=== PATIENT | female | born 1990 | race Caucasian/White ===

== ENCOUNTER 2017-10-26 11:21 | Emergency (ER) | payer OTHER ==
--- NOTE | 2017-10-26 12:12 | PD ---
HPI Chief Complaint Contractions Date Seen: October 26, 2017 Time Seen: 12:05 Travel History International Travel<30 Days: No Contact w/Intl Traveler<30Days: No Known Affected Area: No History of Present Illness HPI Patient is 27-year-old white female 38-[address] Barton for care, presents complaining of contractions that are painful, no bleeding, no leakage, contractions are seen on the monitor somewhat irregular NST reactive Weeks Gestation: 38 Para: 0 : 1 History Social History Alcohol Use: No Tobacco Use: No Substance Abuse: No Allergies-Medications (Allergen,Severity, Reaction): Coded Allergies: Sulfa (Sulfonamide Antibiotics) (Verified Allergy, Unknown, 10/26/17) Review of Systems General / Constitutional: No: Fever, Weight Gain, Chills, Other Eyes: No: Diploplia, Blurred Vision, Visual changes, Pain, Photophobia HENT: No: Headaches, Vertigo, Lightheadedness Cardiovascular: No: Irregular Rhythm, Chest Pain or Discomfort, Palpitations, Tachycardia, Syncope, Varicosities, Edema, Cyanosis Respiratory: No: Cough, Short of Breath, Other Gastrointestinal: Abdominal Pain, No: Nausea, Vomiting, Diarrhea Genitourinary: No: Decreased Urinary Output, Oliguria Musculoskeletal: No: Limited ROM, Weakness, Cramping, Edema, Pain Skin: No Rash, No Itching, No Dryness, No Lumps, No Change in Pigmentation, No Change in Nails, No Alopecia, No Lesions Neurologic: No: Weakness, Dizziness, Syncope, Focal Abnormalities, Coordination Problem, Headache, Slurred Speech, Seizures Psychiatric: No: Depression, Suicidal Ideations, Homicidal Ideation Endocrine: No: Heat Intolerance, Cold Intolerance, Polydipsia, Polyuria, Other Physical Exam Narrative GENERAL: Well-nourished, well-developed patient. SKIN: Warm and dry. HEAD: Normocephalic and atraumatic. EYES: No scleral icterus. No injection or drainage. ENT: No nasal drainage noted. Mucous membranes pink. Airway patent. NECK: Supple, trachea midline. No JVD. CARDIOVASCULAR: Regular rate and rhythm without murmurs, gallops, or rubs. RESPIRATORY: Breath sounds equal bilaterally. No accessory muscle use. BREASTS: Bilateral exam showed no masses , no retractions, no nipple discharge. ABDOMEN/GI: Abdomen soft, non-tender, bowel sounds present, no rebound, no guarding Gravid to [-38] weeks size Fundal Height: [38-] GENITOURINARY: External Genitalia: intact and normal in appearance BUS glands: [-] Cervix: [post-] Dilatation: [1-] Effacement: [60-] Station: [-2] Presentation: [vtx-] Membranes: [intact ] Uterine Contractions: [-irreg] FHT's: Category: [1-] Baseline: [-133] Reactive: [Reactive-] Variability: [mod-] Decels: [-] EXTREMITIES: No cyanosis or edema. BACK: Nontender without obvious deformity. No CVA tenderness. NEUROLOGICAL: Awake and alert. Motor and sensory grossly within normal limits. Five out of 5 muscle strength in all muscle groups. Normal speech. MDM Interpretation(s) Patient is 27-year-old white female at 38-39 weeks presents complaining of regular contractions, on the monitor contractions are somewhat irregular. She says the pain contractions are painful, disease had no bleeding or leakage of fluid. Baby is active. Cervix is 1/60/-2/vertex, NST reactive Plan Plan to discharge patient home to observe for increasing contraction activity and strength, she knows to return for any significant bleeding or leakage of fluid. Patient requests and will receive pain shot Demerol 50/Phenergan 25 otherwise she will follow-up with her OB provider Diagnosis Diagnosis: Primary Impression: Willi Lopez contractions Additional Impression: 38 weeks gestation of Disposition: DISCHARGE HOME Condition: Stable Devon Gallo II, MD October 26, 2017 12:12
[2017-10-26] MEDS ORDERED: MEPERIDINE HCL 50 MG/ML VIAL IM ONE (12:45)
[2017-10-26] MEDS ORDERED: PROMETHAZINE INJ 25 MG/ML VIAL IM ONE (12:45)
[2017-10-26] MEDS ORDERED: PRENTAB7 PO (21:30)
== END 2017-10-26 13:30 | disposition home or self-care (01) ==
LOC: HOBED 11:21
DX: O47.1 False labor at or after 37 completed weeks of gestation (principal); Z3A.38 38 weeks gestation of pregnancy; Z88.2 Allergy status to sulfonamides
CPT/HCPCS: 59025; 96372; 99283; J2175; J2550

== ENCOUNTER 2017-10-26 20:20 | Inpatient (IN) | payer OTHER ==
[~2017-10-26] VITALS: Ht 152.4 cm; Wt 61.0 kg
[2017-10-26] VITALS (9 sets, daily range): BP systolic 97–118; BP diastolic 56–74; PULSE 98–113; RESP 18–20
[~2017-10-26 20:20] MED LIST: LIDOCAINE 2%/EPINEPHrine PF 1:200,000 20ML SDV OTHER ONE
[2017-10-26] MEDS ORDERED: LACTATED RINGER'S 1000 ML INJ 1,000 ML IV PRN (21:04)
--- NOTE | 2017-10-26 21:13 | HHI.HP ---
HPI Chief Complaint Worsening contractions Date Seen: October 26, 2017 Time Seen: 21:00 Travel History International Travel<30 Days: No Contact w/Intl Traveler<30Days: No Known Affected Area: No History of Present Illness HPI Patient 27-year-old white female at 38 weeks sees the [facility] clinic for care was here approximately 12 hours ago evaluated noted 1 cm 50% effaced was juan jose home. She returns at this time juan jose more painfully more regular in her cervix now , contractions are regular and the heart rate tracing is reactive no bleeding or leakage of fluid Weeks Gestation: 38 Para: 0 : 1 Last Menstrual Period: October 26, 2017 History Social History Alcohol Use: No Tobacco Use: No Substance Abuse: No Allergies-Medications (Allergen,Severity, Reaction): Coded Allergies: Sulfa (Sulfonamide Antibiotics) (Verified Allergy, Unknown, 10/26/17) Review of Systems General / Constitutional: No: Fever, Weight Gain, Chills, Other Eyes: No: Diploplia, Blurred Vision, Visual changes, Pain, Photophobia HENT: No: Headaches, Vertigo, Lightheadedness Cardiovascular: No: Irregular Rhythm, Chest Pain or Discomfort, Palpitations, Tachycardia, Syncope, Varicosities, Edema, Cyanosis Respiratory: No: Cough, Short of Breath, Other Gastrointestinal: No: Nausea, Vomiting, Diarrhea Genitourinary: No: Decreased Urinary Output, Oliguria Musculoskeletal: No: Limited ROM, Weakness, Cramping, Edema, Pain Skin: No Rash, No Itching, No Dryness, No Lumps, No Change in Pigmentation, No Change in Nails, No Alopecia, No Lesions Neurologic: No: Weakness, Dizziness, Syncope, Focal Abnormalities, Coordination Problem, Headache, Slurred Speech, Seizures Psychiatric: No: Depression, Suicidal Ideations, Homicidal Ideation Endocrine: No: Heat Intolerance, Cold Intolerance, Polydipsia, Polyuria, Other Physical Exam Narrative GENERAL: Well-nourished, well-developed patient. SKIN: Warm and dry. HEAD: Normocephalic and atraumatic. EYES: No scleral icterus. No injection or drainage. ENT: No nasal drainage noted. Mucous membranes pink. Airway patent. NECK: Supple, trachea midline. No JVD. CARDIOVASCULAR: Regular rate and rhythm without murmurs, gallops, or rubs. RESPIRATORY: Breath sounds equal bilaterally. No accessory muscle use. BREASTS: Bilateral exam showed no masses , no retractions, no nipple discharge. ABDOMEN/GI: Abdomen soft, non-tender, bowel sounds present, no rebound, no guarding Gravid to [-38] weeks size Fundal Height: [38-] GENITOURINARY: External Genitalia: intact and normal in appearance BUS glands: [-] Cervix: [-post] Dilatation: [3-] Effacement: [90-] Station: [-1] Presentation: [vtx-] Membranes: [intact ] Uterine Contractions: [reg-] FHT's: Category: [1-] Baseline: [133-] Reactive: [-R] Variability: [-mod] Decels: [-none] EXTREMITIES: No cyanosis or edema. BACK: Nontender without obvious deformity. No CVA tenderness. NEUROLOGICAL: Awake and alert. Motor and sensory grossly within normal limits. Five out of 5 muscle strength in all muscle groups. Normal speech. Caprini VTE Risk Assessment Caprini VTE Risk Assessment: No/Low Risk (score <= 1) Caprini Risk Assessment Model Point Value = 1 Point Value = 2 Point Value = 3 Point Value = 5 Age 41-60 Minor surgery BMI > 25 kg/m2 Swollen legs Varicose veins or History of unexplained or recurrent spontaneous Oral contraceptives or hormone replacement Sepsis (< 1 month) Serious lung disease, including pneumonia (< 1 month) Abnormal pulmonary function Acute myocardial infarction Congestive heart failure (< 1 month) History of inflammatory bowel disease Medical patient at bed rest Age 61-74 Arthroscopic surgery Major open surgery (> 45 min) Laparoscopic surgery (> 45 min) Malignancy Confined to bed (> 72 hours) Immobilizing plaster cast Central venous access Age >= 75 History of VTE Family history of VTE Factor V Leiden Prothrombin [id number] Lupus anticoagulant Anticardiolipin antibodies Elevated serum homocysteine Heparin-induced thrombocytopenia Other congenital or acquired thrombophilia Stroke (< 1 month) Elective arthroplasty Hip, pelvis, or leg fracture Acute spinal cord injury (< 1 month) Prophylaxis Regimen Total Risk Factor Score Risk Level Prophylaxis Regimen 0-1 Low Early ambulation 2 Moderate Order ONE of the following: *Sequential Compression Device (SCD) *Heparin 5000 units SQ BID 3-4 Higher Order ONE of the following medications: *Heparin 5000 units SQ TID *Enoxaparin/Lovenox 40 mg SQ daily (WT < 150 kg, CrCl > 30 mL/min) *Enoxaparin/Lovenox 30 mg SQ daily (WT < 150 kg, CrCl > 10-29 mL/min) *Enoxaparin/Lovenox 30 mg SQ BID (WT < 150 kg, CrCl > 30 mL/min) AND/OR *Sequential Compression Device (SCD) 5 or more Highest Order ONE of the following medications: *Heparin 5000 units SQ TID (Preferred with Epidurals) *Enoxaparin/Lovenox 40 mg SQ daily (WT < 150 kg, CrCl > 30 mL/min) *Enoxaparin/Lovenox 30 mg SQ daily (WT < 150 kg, CrCl > 10-29 mL/min) *Enoxaparin/Lovenox 30 mg SQ BID (WT < 150 kg, CrCl > 30 mL/min) AND *Sequential Compression Device (SCD) Data Data Orders Orders Admit To Inpatient (10/26/17 ) Vital Signs (Adult) .Per protocol (10/26/17 21:04) Heart (10/26/17 21:04) Amnioinfusion (10/26/17 21:04) Urinary Catheter Management .ONCE (10/26/17 21:04) Lactated Ringer's 1000 Ml Inj (Lr 1000 M (10/26/17 21:04) Lactated Ringer's 1000 Ml Inj (Lr 1000 M (10/26/17 21:04) Sodium Chlorid 0.9% 500 Ml Inj (Ns 500 M (10/26/17 21:15) Sodium Chlor 0.9% 1000 Ml Inj (Ns 1000 M (10/26/17 21:24) Lidocaine 1% Inj (50 Ml) (Xylocaine 1% I (10/26/17 21:15) Citric Acid-Sodium Citrate Liq (Bicitra (10/26/17 21:15) Fentanyl Inj (Fentanyl Inj) (10/26/17 21:15) Fentanyl Inj (Fentanyl Inj) (10/26/17 21:15) Penicillin G Potassium Inj (Pfizerpen-G (10/26/17 21:15) Penicillin G Potassium Inj (Pfizerpen-G (10/27/17 01:15) Complete Blood Count With Diff (10/26/17 21:04) Hold Clot (10/26/17 21:04) Abo/Rh Blood Type (10/26/17 21:04) Urinalysis - C+S If Indicated (10/26/17 21:04) Drug Screen, Random Urine (10/26/17 21:04) Ob/Psych Drug Screen, Urine (10/26/17 21:04) Type And Screen (10/26/17 21:04) Resp Oxygen Non Rebreathe Mask (10/26/17 ) ^ Epidural / Intrathecal Infus (10/26/17 21:04) Oxytocin 30 Units-500ml Premix (Pitocin (10/26/17 21:15) Lidocaine 1% Inj (50 Ml) (Xylocaine 1% I (10/26/17 21:15) Light Mineral Oil (Muri-Lube Oil) (10/26/17 21:15) Group B Strep: Positive Assessment/Plan Assessment and Plan Patient is 27-year-old white female at 38 weeks now in labor. She is 3 cm /90/-1 vertex. 12 hours ago she was checked here in triage and 1 cm/ 50% , so she is certainly changed her cervix 10-12 hours plan and I explained to her that , finding the latent phase labor lasting long and that she is trying to transition in the active phase Plan-admit to labor and delivery, managed labor and augment appropriately, anticipate vaginal delivery Devon Gallo II, MD October 26, 2017 21:13
[2017-10-26] MEDS ORDERED: MINERAL OIL 10 ML VIAL TOPICAL PRN (21:15)
[2017-10-26] MEDS ORDERED: LIDOCAINE HCL 1% 50 ML VIAL INFIL PRN (21:15)
[2017-10-26] MEDS ORDERED: SODIUM CHLORID 0.9% 500 ML INJ 500 ML IV PRN (21:15)
[2017-10-26] MEDS ORDERED: CITRIC ACID-SODIUM CITRATE LIQ 30 ML UDC PO SCH (21:15)
[2017-10-26] MEDS ORDERED: LIDOCAINE HCL 1% 50 ML VIAL I-DERMAL PRN (21:15)
[2017-10-26] MEDS ORDERED: PENICILLIN G POTASSIUM INJ 5,000,000 UNITS in SODIUM CHLORIDE 0.9% INJ 100 ML IV ONE (21:15)
[2017-10-26] MEDS ORDERED: OXYTOCIN 30 UNITS-500ML PREMIX 500 ML IV ONE (21:15)
[2017-10-26] MEDS ORDERED: SODIUM CHLOR 0.9% 1000 ML INJ 1,000 ML IV PRN (21:24)
[2017-10-26] MEDS ORDERED: PRENTAB7 PO (21:30)
[2017-10-26] MEDS ORDERED: fentaNYL 2MCG-BUPIV 0.125% INJ 100 ML ONE (21:46)
[2017-10-26] MEDS: LACTATED RINGER'S 1000 ML INJ 1,000 ML IV SCH (21:50)
[2017-10-26 22:13] LABS: AUTOMATED NEUTROPHIL # 13.2 TH/MM3 (1.8-7.7); BASOPHIL # 0.1 TH/MM3 (0-0.2); BASOPHIL % 0.4 % (0.0-2.0); EOSINOPHIL % 0.1 % (0.0-4.0); HEMATOCRIT 39.1 % (35.0-46.0); HEMOGLOBIN 13.7 GM/DL (11.6-15.3); LYMPH % 9.8 % (9.0-44.0); LYMPHOCYTE # 1.5 TH/MM3 (1.0-4.8); MEAN CELL VOLUME 91.7 FL (80.0-100.0); MEAN CORPUSCULAR HEMOGLOBIN 32.2 PG (27.0-34.0); MEAN CORPUSCULAR HGB CONC 35.1 % (32.0-36.0); MEAN PLATELET VOLUME 7.7 FL (7.0-11.0); MONO % 5.3 % (0.0-8.0); MONOCYTE # 0.8 TH/MM3 (0-0.9); NEUT % 84.4 % (16.0-70.0); PLATELET COUNT 254 TH/MM3 (150-450); RED BLOOD COUNT 4.27 MIL/MM3 (4.00-5.30); RED CELL DISTRIBUTION WIDTH 13.5 % (11.6-17.2); WHITE BLOOD COUNT 15.7 TH/MM3 (4.0-11.0)
[2017-10-26 22:28] LABS: BILIRUBIN, URINE NEG (NEG); BLOOD, URINE NEG (NEG); GLUCOSE,URINE NEG (NEG); KETONE, URINE 10 mg/dL (NEG); NITRITE,URINE NEG (NEG); SQUAMOUS EPITHELIAL CELL URINE 1 /hpf (0-5); URINE COLOR LIGHT-YELLOW (YELLW/STRAW); URINE LEUKOCYTE ESTERASE TRACE (NEG)
[2017-10-26] MEDS ORDERED: ePHEDrine/NS 25 MG/5 ML SYRINGE IV PUSH PRN (23:45)
[2017-10-26] MEDS ORDERED: DO NOT ADMINISTER ANTICOAGULANTS PRN (23:45)
[2017-10-26] MEDS ORDERED: NO SYSTEM NARCOTICS PRN (23:45)
[2017-10-27] VITALS (59 sets, daily range): BP systolic 87–128; BP diastolic 46–90; PULSE 81–168; RESP 16–20; TEMP 98.2–100.8
[2017-10-27] MEDS: PENICILLIN G POTASSIUM INJ 2,500,000 UNITS in SODIUM CHLORIDE 0.9% INJ 100 ML IV SCH ×4 (02:11→13:46)
[2017-10-27] MEDS: LACTATED RINGER'S 1000 ML INJ 1,000 ML IV SCH ×2 (05:42→09:43)
[2017-10-27] MEDS: fentaNYL 2MCG-BUPIV 0.125% 100 ML EPIDURAL PRN ×2 (05:44→13:04)
[2017-10-27] MEDS ORDERED: LIDOCAINE 2%/EPINEPHrine 1:100,000 20ML MDV ONE (09:26)
[2017-10-27] MEDS ORDERED: BUPIVACAINE HCL PF 0.25% 10 ML VIAL ONE (09:26)
[2017-10-27] MEDS ORDERED: OXYTOCIN 30 UNITS-500ML PREMIX 500 ML ONE (13:40)
[2017-10-27] MEDS ORDERED: LIDOCAINE HCL 1% PF 30 ML VIAL ONE (14:08)
--- NOTE | 2017-10-27 14:25 | PD.OB.DELI ---
Weeks gestation: 38 Anesthesia: Epidural Episiotomy: None Vaginal Delivery: Normal Presentation: Occiput anterior Nuchal Cord: None Delayed cord clamping (45 sec): No (thick meconium, infant directly to Peds/ Nursery/warmer) Infant: Female Delivery date: October 27, 2017 Delivery time: 14:03 One Minute : 7 Five Minute : 8 Weight: 6#5oz Placenta: Spontaneous delivery, Intact, 3 vessel cord Laceration: Vaginal laceration, 2 deg Repair: Chromic running Estimated blood loss: 300 mL Additional Information although FHTs Cat I and reactive baseline was tachycardic in 160s-180s during pushing efforts; internal temperature on vaginal exam palpated very warm and maternal temperature taken after delivery was elevated; diagnose early chorioamnionitis, treat with Unasyn 3g IV x 4 doses Parul Barton MD October 27, 2017 14:24
[2017-10-27] MEDS ORDERED: ALUMINUM/MAGNESIUM/SIMETH 30 ML CUP PO PRN (14:30)
[2017-10-27] MEDS ORDERED: SODIUM CHLORIDE 0.9% FLUSH 10 ML FLUSH IV FLUSH PRN (14:30)
[2017-10-27] MEDS ORDERED: ACETAMINOPHEN 325 MG TAB PO PRN (14:30)
[2017-10-27] MEDS ORDERED: ONDANSETRON ODT 4 MG TAB PO PRN (14:30)
[2017-10-27] MEDS ORDERED: OXYTOCIN 30 UNITS-500ML PREMIX 500 ML IV SCH (14:30)
[2017-10-27] MEDS ORDERED: oxyCODONE/ACETAMINOPHEN 5 MG/325 MG TAB PO PRN ×2 (14:30)
[2017-10-27] MEDS ORDERED: ZOLPIDEM TARTRATE 5 MG TAB PO PRN (14:30)
[2017-10-27] MEDS ORDERED: WITCH HAZEL 50%/GLYCERIN 12.5% 40 PAD JAR TOPICAL PRN (14:30)
[2017-10-27] MEDS ORDERED: BENZOCAINE 20% TOPICAL SPRAY 60 ML CAN TOPICAL PRN (14:30)
[2017-10-27] MEDS ORDERED: SODIUM CHLORIDE 0.9% FLUSH 10 ML FLUSH IV FLUSH SCH (15:00)
[2017-10-27] MEDS: IBUPROFEN 800 MG TAB PO PRN (15:18)
[2017-10-27] MEDS ORDERED: MEASLES, MUMPS, RUBELLA VACCINE 0.5 ML VIAL SQ ONE (16:00)
[2017-10-27] MEDS ORDERED: DIPHTH/TETANUS/ACEL PERTUSSIS (BOOSTER) 0.5 ML VIAL/PFS IM ONE (16:00)
--- NOTE | 2017-10-27 16:08 | HHI.DCPOC ---
Discharge Care Plan Diagnosis: (1) Chorioamnionitis (2) Normal vaginal delivery Your Health Problems Are: Vaginal delivery Report Symptoms to Your Doctor -Temperature above 100.5 degrees -Redness, of incision or excessive or foul smelling drainage -Unusual pain or calf pain -Increased vaginal bleeding -Painful or difficulty urinating -Feelings of extreme sadness or anxiety after 2 weeks Goals to Promote Your Health * To prevent worsening of your condition and complications * To maintain your health at the optimal level Directions to Meet Your Goals Take your medications as prescribed Follow your dietary instruction Follow activity as directed Ensure plenty of rest for recovery Drink fluids for hydration Keep your appointments as scheduled Take your immunizations and boosters as scheduled If your symptoms worsen call your PCP, if no PCP go to Urgent Care Center or Emergency Room Smoking is Dangerous to Your Health. Avoid second hand smoke Call the 24-hour crisis hotline for domestic abuse at José Coronado MD October 27, 2017 16:08
[2017-10-27] MEDS: AMPICILLIN-SULBACTAM INJ 3 GM in SODIUM CHLORIDE 0.9% INJ 100 ML IV SCH (17:07)
[2017-10-28] MEDS: AMPICILLIN-SULBACTAM INJ 3 GM in SODIUM CHLORIDE 0.9% INJ 100 ML IV SCH ×2 (01:10→05:11)
[2017-10-28] MEDS: IBUPROFEN 800 MG TAB PO PRN ×3 (01:10→22:22)
--- NOTE | 2017-10-28 06:40 | HHI.OB ---
Subjective Post Day: 1 Remarks s/p FT of female , delivery complicated by meconium fluid, maternal temperature ; being treated for chorioamnionitis, has had 3/ 4 Unasyn doses Objective Vitals/I&O Vital Signs Date Time Temp Pulse Resp B/P (MAP) Pulse Ox O2 Delivery O2 Flow Rate FiO2 10/27/17 20:00 98.2 86 18 110/65 (80) 10/27/17 17:04 98.5 20 10/27/17 17:04 81 122/76 (91) 10/27/17 16:10 18 10/27/17 16:00 101 109/60 (76) 10/27/17 15:30 103 123/62 (82) 10/27/17 15:15 103 111/66 (81) 10/27/17 15:00 108 115/73 (87) 10/27/17 14:45 116 115/78 (90) 10/27/17 14:41 100.8 10/27/17 14:31 119 113/69 (84) 10/27/17 14:30 120 116/68 (84) 10/27/17 14:05 18 10/27/17 14:00 110/90 (97) 10/27/17 13:29 18 10/27/17 13:27 99.3 10/27/17 13:04 18 10/27/17 13:01 141 105/67 (80) 10/27/17 13:00 18 10/27/17 12:31 99.6 10/27/17 12:00 131 108/59 (75) 10/27/17 11:00 119 123/82 (96) 10/27/17 10:32 98.9 10/27/17 10:30 99 122/80 (94) 10/27/17 10:15 116 117/73 (88) 10/27/17 10:00 111 123/77 (92) 10/27/17 09:59 18 10/27/17 09:55 131 120/74 (89) 10/27/17 09:50 113 128/75 (92) 10/27/17 09:45 120 113/63 (80) 10/27/17 09:40 112 108/49 (68) 10/27/17 09:35 119 104/46 (65) 10/27/17 09:34 112 101/50 (67) 10/27/17 09:30 120 10/27/17 09:30 20 10/27/17 09:00 115 118/83 (95) 10/27/17 08:15 18 10/27/17 08:00 122 108/80 (89) 10/27/17 07:30 109 117/82 (94) 10/27/17 07:00 104 122/85 (97) Objective Remarks GENERAL: Well-nourished, well-developed patient. CARDIOVASCULAR: Regular rate and rhythm without murmurs, gallops, or rubs. RESPIRATORY: Breath sounds equal bilaterally. No accessory muscle use. ABDOMEN/GI: Abdomen soft, non-tender. Fundus: Firm, non-tender at umbilicus. GENITOURINARY: Light bleeding. EXTREMITIES: No cyanosis or edema, non-tender, without signs of DVT. Medications and IVs Current Medications Medications (Trade) Dose Ordered Sig/Josy Route Start Time Stop Time Status Last Admin (NS Flush) 2 ml BID IV FLUSH 10/27/17 15:00 (NS Flush) 2 ml UNSCH PRN IV FLUSH 10/27/17 14:30 (Tylenol) 650 mg Q4H PRN PO 10/27/17 14:30 (Motrin) 800 mg Q8H PRN PO 10/27/17 14:30 10/28/17 01:10 (Percocet 5-325 Mg) 1 tab Q4H PRN PO 10/27/17 14:30 (Percocet 5-325 Mg) 2 tab Q4H PRN PO 10/27/17 14:30 (Americaine 20% Top Spr) 1 spray Q4H PRN TOPICAL 10/27/17 14:30 10/27/17 15:17 (Tucks Pads) 1 applic QID PRN TOPICAL 10/27/17 14:30 10/27/17 15:17 (Sirena-Colace) 2 tab Q12H PRN PO 10/27/17 14:30 (Ambien) 5 mg HS PRN PO 10/27/17 14:30 (Mag-Al Plus Susp Liq) 15 ml Q8H PRN PO 10/27/17 14:30 (Zofran Odt) 4 mg Q6H PRN PO 10/27/17 14:30 Ampicillin Sodium/ Sulbactam Sodium 3 gm/Sodium Chloride 100 ml @ 200 mls/hr Q6H IV 10/27/17 16:00 10/28/17 10:29 10/28/17 05:11 Assessment/Plan Problem List: (1) Normal vaginal delivery ICD Codes: O80 - Encounter for full-term uncomplicated delivery Status: Acute (2) Chorioamnionitis ICD Codes: O41.1290 - Chorioamnionitis, unspecified trimester, not applicable or unspecified Status: Acute Qualifiers: Assessment and Plan PPD#1 chorioamnionitis dx , 4 doses of Unasyn ordered, has had 3; afebrile since arrival on [facility] infant in NICU, had some respiratory difficulty at , did have meconium fluid; hoping to transition to NBN today anticipate d/c to home tmrw Discharge Planning routine Parul Barton MD October 28, 2017 06:40
[2017-10-28 07:44] VITALS: BP 99/67; PULSE 80; RESP 18; TEMP 98
[2017-10-28] MEDS: DOCUSATE SODIUM 50 MG/SENNA 8.6 MG TAB PO PRN (13:30)
[2017-10-28] MEDS ORDERED: AMPICILLIN-SULBACTAM INJ 3 GM in SODIUM CHLORIDE 0.9% INJ 100 ML IV ONE (13:30)
[2017-10-28 20:00] VITALS: BP 102/68; PULSE 64; RESP 18; TEMP 98; O2SAT 97
[2017-10-29] MEDS: IBUPROFEN 800 MG TAB PO PRN (07:35)
[2017-10-29] MEDS: DOCUSATE SODIUM 50 MG/SENNA 8.6 MG TAB PO PRN (07:35)
[2017-10-29 07:52] VITALS: BP 104/66; PULSE 71; RESP 17; TEMP 98.2
--- NOTE | 2017-10-29 08:04 | HHI.OB ---
Subjective Post Day: 2 Remarks doing well, ready for discharge Objective Vitals/I&O Vital Signs Date Time Temp Pulse Resp B/P (MAP) Pulse Ox O2 Delivery O2 Flow Rate FiO2 10/29/17 07:52 104/66 (79) 10/29/17 07:52 98.2 71 17 10/28/17 20:00 98.0 64 18 102/68 (79) 97 Objective Remarks GENERAL: Well-nourished, well-developed patient. CARDIOVASCULAR: Regular rate and rhythm without murmurs, gallops, or rubs. RESPIRATORY: Breath sounds equal bilaterally. No accessory muscle use. ABDOMEN/GI: Abdomen soft, non-tender. Fundus: Firm, non-tender at umbilicus. GENITOURINARY: Light bleeding. EXTREMITIES: No cyanosis or edema, non-tender, without signs of DVT. Medications and IVs Current Medications Medications (Trade) Dose Ordered Sig/Josy Route Start Time Stop Time Status Last Admin (NS Flush) 2 ml BID IV FLUSH 10/27/17 15:00 (NS Flush) 2 ml UNSCH PRN IV FLUSH 10/27/17 14:30 (Tylenol) 650 mg Q4H PRN PO 10/27/17 14:30 (Motrin) 800 mg Q8H PRN PO 10/27/17 14:30 10/29/17 07:35 (Percocet 5-325 Mg) 1 tab Q4H PRN PO 10/27/17 14:30 (Percocet 5-325 Mg) 2 tab Q4H PRN PO 10/27/17 14:30 (Americaine 20% Top Spr) 1 spray Q4H PRN TOPICAL 10/27/17 14:30 10/27/17 15:17 (Tucks Pads) 1 applic QID PRN TOPICAL 10/27/17 14:30 10/27/17 15:17 (Sirena-Colace) 2 tab Q12H PRN PO 10/27/17 14:30 10/29/17 07:35 (Ambien) 5 mg HS PRN PO 10/27/17 14:30 (Mag-Al Plus Susp Liq) 15 ml Q8H PRN PO 10/27/17 14:30 (Zofran Odt) 4 mg Q6H PRN PO 10/27/17 14:30 Assessment/Plan Problem List: (1) Normal vaginal delivery ICD Codes: O80 - Encounter for full-term uncomplicated delivery Status: Acute (2) Chorioamnionitis ICD Codes: O41.1290 - Chorioamnionitis, unspecified trimester, not applicable or unspecified Status: Acute Qualifiers: Assessment and Plan PPD#2 chorioamnionitis dx , 4 doses of Unasyn ordered, has had 4; afebrile since arrival on PP infant in NICU, had some respiratory difficulty at , did have meconium fluid; anticipate d/c to home today Discharge Planning routine Attending Attestation pt seen by Gladis Cadet MD October 29, 2017 08:04
[2017-10-29] MEDS ORDERED: IBUP1TAB7 PO (08:05)
== END 2017-10-29 14:25 | disposition home or self-care (01) | DRG 775 ==
LOC: HOBED 20:20 → H2EA 21:09 → H1EA 10-27 16:59
PROVIDERS: ADMIT Obstetrics & Gynecology; ATTEND Obstetrics & Gynecology
PROC: 00HU33Z Insertion of Infusion Device into Spinal Canal, Percutaneous Approach (ICD-10-PCS; 2017-10-26)
PROC: 3E0R3BZ Introduction of Anesthetic Agent into Spinal Canal, Percutaneous Approach (ICD-10-PCS; 2017-10-26)
PROC: 10E0XZZ Delivery of Products of Conception, External Approach (ICD-10-PCS; principal; 2017-10-27)
PROC: 0KQM0ZZ Repair Perineum Muscle, Open Approach (ICD-10-PCS; 2017-10-27)
DX: O70.1 Second degree perineal laceration during delivery (principal); Z37.0 Single live birth; O41.1230 Chorioamnionitis, third trimester, not applicable or unspecified; O77.0 Labor and delivery complicated by meconium in amniotic fluid; O99.824 Streptococcus B carrier state complicating childbirth; Z23 Encounter for immunization; Z3A.38 38 weeks gestation of pregnancy
CPT/HCPCS: 59025; 80307; 81001; 85025; 86850; 86900; 86901; G0481; J0295; J2540; J2590; J7120